=== PATIENT | female | born 1950 | race Caucasian/White ===

== ENCOUNTER 2020-05-18 00:35 | Outpatient (CLI) | payer MEDICARE, OTHER, SELFPAY ==
[2020-05-18 19:34] LABS: SARS-CoV-2 RNA PCR Negative
== END 2020-05-18 00:36 | disposition home or self-care (01) ==
LOC: ANHCOVIDDT 00:35
PROVIDERS: PCP Internal Medicine; Visit Provider Internal Medicine Gastroenterology
DX: Z01.812 Encounter for preprocedural laboratory examination (principal); Z20.828 Contact with and (suspected) exposure to other viral communicable diseases
CPT/HCPCS: 87635; C9803; U0003

== ENCOUNTER 2020-05-20 01:38 | Day surgery (SDC) | payer MEDICARE, OTHER, SELFPAY ==
[2020-05-07 14:31] VITALS: BMI 22.6
--- NOTE | 2020-05-18 14:41 | WPDANESEPPF ---
Anes - Initial Pre Proc Eval Procedure: Operation Date: 05/20/20 08:00 Proposed Procedures p Colonoscopy - Kevin Stephen MD Date/Time: 05/18/20 14:41 Surgeon: Kevin Stephen MD Pre Op Diagnosis: Poss Cologuard Patient Data Age: 69 Gender: F Height: 1.57 m Weight: 56 kg Allergies Allergy/AdvReac Type Severity Reaction Status Date / Time No Known Allergies Allergy Verified 05/20/20 06:58 Home Medications Medication Instructions Recorded Confirmed Type calcium carbonate 500 mg calcium 1,000 mg PO DAILY 07/31/19 05/07/20 History (1,250 mg) tablet bimatoprost 0.01 % eye drops 1 drop EACH EYE QPM #5 ml 08/07/19 05/07/20 Rx alendronate 70 mg tablet 70 mg PO WEEKLY #12 tablet 12/19/19 05/07/20 Rx simvastatin 20 mg tablet 20 mg PO DAILY #90 tablet 12/19/19 05/07/20 Rx peg 3350-electrolytes 236 240 ml PO Q10M #4000 ml 05/04/20 Rx gram-22.74 gram-6.74 gram-5.86 gram solution ascorbic acid (vitamin C) [Vitamin 250 mg PO DAILY 05/07/20 05/07/20 History C] timolol maleate 1 drop LEFTEYE DAILY 05/07/20 05/07/20 History Patient hx anesthesia problems: none Family hx anesthesia problems: none PMFSH Past Medical History Medical History (Updated 05/18/20 @ 14:41 by Jovani Gallego DO) History of hysteroscopy Low tension glaucoma of left eye, indeterminate stage Mixed hyperlipidemia Positive colorectal cancer screening using Cologuard test Surgical History Surgical History (Updated 01/08/20 @ 13:57 by Jeanette Vyas CMA) History of tubal ligation Social History Social History Smoking status: Never smoker Second hand tobacco smoke exposure: No Alcohol intake: current Anes - Eval Final PreProcedure Day of Procedure 05/18/20 14:41 Patient weight: normal Heart: regular rate and rhythm Lungs: clear to auscultation and normal air movement Airway: Mallampati scale class II Neurological: alert and oriented Last oral intake: >/= 8 hours ASA classification: II Emergent: no Anesthetic plan: proceed Anesthesia type and monitoring: general GIVS and standard monitoring Informed Consent: The patient's anesthetic plan and its attendant risks and benefits were discussed with the patient/family/POA. Questions were solicited and answers provided to the satisfaction of the patient/family/POA.
[2020-05-20 07:00] VITALS: BP 109/60; PULSE 60; RESP 20; TEMP 36.4; O2SAT 100; BMI 21.7
[2020-05-20] MEDS: LACTATED RINGERS 1,000 ML 150 ML IV CONT (07:04)
--- NOTE | 2020-05-20 07:54 | WPDHPUPDATE1 ---
History and Physical Update Update Date/Time: 05/20/20 07:54 History and Physical has been reviewed, including an updated exam of the patient. There are NO changes in the patient's condition. Risks, benefits, and alternatives have been discussed and questions answered. Patient agrees to proceed with procedure.
[2020-05-20 08:21] VITALS: BP 84/48; PULSE 70; RESP 16; O2SAT 97
[2020-05-20 08:31] VITALS: BP 103/61; PULSE 67; RESP 18; O2SAT 100
[2020-05-20 08:41] VITALS: BP 115/56; PULSE 58; RESP 18; O2SAT 99
== END 2020-05-20 09:07 | disposition home or self-care (01) ==
PROVIDERS: PCP Internal Medicine; Visit Provider Internal Medicine Gastroenterology
PROC: 0DJD8ZZ Inspection of Lower Intestinal Tract, Via Natural or Artificial Opening Endoscopic (ICD-10-PCS; CPT 45378; principal; 2020-05-20 08:00)
DX: D12.2 Benign neoplasm of ascending colon (principal); R19.5 Other fecal abnormalities; K57.30 Diverticulosis of large intestine without perforation or abscess without bleeding; K64.8 Other hemorrhoids; K62.89 Other specified diseases of anus and rectum; E78.2 Mixed hyperlipidemia
CPT/HCPCS: 45385; 88305; J2704; J7120

== ENCOUNTER 2020-10-12 12:38 | Outpatient (CLI) | payer MEDICARE, OTHER, SELFPAY ==
--- NOTE | ~2020-10-12 | MMUS_ITS ---
EXAMINATION: MM diagnostic milagros RT w janak, US breast RT complete HISTORY: Breast pain, particularly behind the nipple TECHNIQUE: ML, MLO and cc 3-D tomosynthesis images of the right breast were performed and synthetic 2 -D images were generated. CAD analysis was submitted and interpreted. High resolution breast ultrasou nd was performed. COMPARISON: 09/03/2019, 06/15/2018, 06/14/2017 bilateral digital screening mammogram examinations BREAST PARENCHYMAL COMPOSITION: The breasts are heterogeneously dense, which may obscure small masses . FINDINGS: MAMMOGRAPHIC FINDINGS: No suspicious mass or architectural distortion, malignant calcification, skin thickening or retractio n or significant new or developing density is detected. ULTRASOUND: No suspicious mass, suspicious shadowing or other significant sonographic abnormality is identified. IMPRESSION: 1. No mammographic evidence of malignancy 2. Routine annual mammographic screening is recommended. BI-RADS Category 1: Negative Reviewed, dictated and finalized at location A. RITY PROJECT MANAGER IMPRESSION: 1. No mammographic evidence of malignancy 2. Routine annual mammographic screening is recommended. BI-RADS Category 1: Negative
== END 2020-10-12 12:39 | disposition home or self-care (01) ==
LOC: ANHIMG 12:39
PROVIDERS: PCP Internal Medicine; Visit Provider Student in an Organized Health Care Education/Training Program
DX: N64.59 Other signs and symptoms in breast (principal)
CPT/HCPCS: 76641; 77061; 77065; G0279

== ENCOUNTER 2020-11-02 08:20 | Outpatient (CLI) | payer MEDICARE, OTHER, SELFPAY ==
--- NOTE | ~2020-11-02 | MM_ITS ---
EXAMINATION: MM screening [facility] BI w janak HISTORY: Screening mammogram TECHNIQUE: Craniocaudal and mediolateral oblique 3-D tomosynthesis images were obtained and synthetic 2-D images were generated. CAD analysis was submitted and interpreted. COMPARISON: 10/12/2020 diagnostic right mammogram and complete right breast ultrasound 09/03/2019, 06/15/2018, 06/14/2017 bilateral digital screening mammogram examinations BREAST PARENCHYMAL COMPOSITION: The breasts are heterogeneously dense, which may obscure small masses . FINDINGS: There are surgical clips in the left breast. There is no evidence of suspicious mass, nelli cification, or architectural distortion to suggest malignancy in either breast. There has been no mely picious interval change. IMPRESSION: 1. No mammographic evidence of malignancy. 2. Recommend routine screening mammography in one year. BI-RADS Category 1: Negative Reviewed, dictated and finalized at location A. NG AND FILLING MACHINE OPERATOR
== END 2020-11-02 08:21 | disposition home or self-care (01) ==
LOC: ANHIMG 08:24
PROVIDERS: PCP Internal Medicine; Visit Provider Student in an Organized Health Care Education/Training Program
DX: Z12.31 Encounter for screening mammogram for malignant neoplasm of breast (principal)
CPT/HCPCS: 77063; 77067

== ENCOUNTER 2021-10-14 14:49 | Emergency (ER) | payer MEDICARE, OTHER, SELFPAY ==
[2021-10-14 14:51] VITALS: BP 104/93; PULSE 74; RESP 18; TEMP 36.8; O2SAT 100
--- NOTE | 2021-10-14 16:04 | ED.GENADULT ---
HPI - General Adult General Chief complaint: Wound/Laceration <Александр Hoff PA-C - Last Filed: 10/14/21 16:12> Stated complaint: R THUMB LAC <Александр Hoff PA-C - Last Filed: 10/14/21 16:12> Time Seen by Provider: 10/14/21 14:55 <Александр Hoff PA-C - Last Filed: 10/14/21 16:12> Source: patient <NICO Quiroz Last Filed: 10/14/21 16:12> Mode of arrival: ambulatory <NICO Quiroz Last Filed: 10/14/21 16:12> Limitations: no limitations <NICO Quiroz Last Filed: 10/14/21 16:12> History of Present Illness HPI narrative: Patient is a 70-year-old female with chief complaint of laceration to her right thumb on a dish. She states the bleeding has now stopped. She states she is not UTD on Tdap. She denies any other injuries or symptoms. <Александр Hoff PA-C - Last Filed: 10/14/21 16:12> Related Data Home medications: Home Medications Medication Instructions Recorded Confirmed calcium carbonate 500 mg calcium 1,000 mg PO DAILY 07/31/19 03/02/21 (1,250 mg) tablet ascorbic acid (vitamin C) [Vitamin 250 mg PO DAILY 05/07/20 03/02/21 C] timolol maleate 1 drop LEFTEYE DAILY 05/07/20 03/02/21 <Александр Hoff PA-C - Last Filed: 10/14/21 16:12> Allergies/adverse reactions: Allergies Allergy/AdvReac Type Severity Reaction Status Date / Time No Known Allergies Allergy Verified 10/14/21 15:05 <NICO Quiroz Last Filed: 10/14/21 16:12> Review of Systems Review of Systems: CONSTITUTIONAL: Denies fever, chills, or sweats. EYES: Denies visual changes, redness, or discharge. ENT: Denies rhinorrhea, congestion, sore throat, or otalgia. CARDIOVASCULAR: Denies chest pain, palpitations, or edema. RESPIRATORY: Denies cough or dyspnea. GASTROINTESTINAL: Denies abdominal pain, nausea, vomiting, or diarrhea. GENITOURINARY: Denies dysuria or hematuria. SKIN: Reports laceration denies rash or itching. MUSCULOSKELETAL: Denies back pain, joint pain, or myalgia. NEUROLOGIC: Denies headache, numbness, dizziness, or weakness. PSYCHIATRIC: Denies anxiety or depression. <Александр Hoff PA-C - Last Filed: 10/14/21 16:12> PMFSH Past Medical History Medical History: Medical History History of one miscarriage Low tension glaucoma of left eye, indeterminate stage Mixed hyperlipidemia Positive colorectal cancer screening using Cologuard test <Александр Hoff PA-C - Last Filed: 10/14/21 16:12> Surgical History Surgical History: Surgical History History of hysteroscopy History of tubal ligation <Александр Hoff PA-C - Last Filed: 10/14/21 16:12> Family History Family History: Family History Mother Family history of dementia Sibling Family history of malignant neoplasm Family history of malignant neoplasm of bone Father Family history unknown Diabetes mellitus <Александр Hoff PA-C - Last Filed: 10/14/21 16:12> Social History Social History: Social History Smoking status: Never smoker Second hand tobacco smoke exposure: No Alcohol intake: current Drinks per week: 1 Alcohol use details: wine, occasionally Substance use: never Substance use type: does not use <Александр Hoff PA-C - Last Filed: 10/14/21 16:12> Exam Narrative: GENERAL: Well-appearing, well-nourished, and in no acute distress. HEAD: Normocephalic, atraumatic. EYES: PERRLA and EOMI. CHEST: Clear to auscultation. No respiratory distress. No wheezes rales or rhonchi EXTREMITIES: Normal range of motion. No edema. SKIN: 1cm well approximated laceration to the edge of thumb no nail involvement. No active bleeding. No foreign bodies noted. Warm, dry, no rash. NEURO: No focal deficits. Alert and oriented x3.
[2021-10-14] MEDS: TETANUS,DIPHTHERIA,AC PERTUSSIS ADULT (0.5 ML) BOOSTRIX IM (16:05)
== END 2021-10-14 16:24 | disposition home or self-care (01) ==
PROVIDERS: Emergency Provider Emergency Medicine; PCP Internal Medicine
DX: S61.011A Laceration without foreign body of right thumb without damage to nail, initial encounter (principal); Z23 Encounter for immunization; E78.2 Mixed hyperlipidemia; H40.1224 Low-tension glaucoma, left eye, indeterminate stage; W26.8XXA Contact with other sharp object(s), not elsewhere classified, initial encounter
CPT/HCPCS: 90471; 90715; 99282

== ENCOUNTER 2021-12-23 07:56 | Outpatient (CLI) | payer MEDICARE, OTHER, SELFPAY ==
--- NOTE | ~2021-12-23 | MM_ITS ---
EXAMINATION: MM screening [facility] BI w janak HISTORY: Screening mammogram TECHNIQUE: Craniocaudal and mediolateral oblique 3-D tomosynthesis images were obtained and synthetic 2-D images were generated. CAD analysis was submitted and interpreted. COMPARISON: 11/02/2020, 10/12/2020, 09/03/2019 BREAST PARENCHYMAL COMPOSITION: The breasts are heterogeneously dense, which may obscure small masses . FINDINGS: There is no suspicious mass, calcification, or architectural distortion to suggest malignan cy in either breast. There has been no suspicious interval change. IMPRESSION: 1. No mammographic evidence of malignancy. 2. Recommend routine screening mammography in one year. BI-RADS Category 1: Negative Reviewed, dictated and finalized at location A.
--- NOTE | ~2021-12-23 | DEXA_ITS ---
Bone Density Report Name: VIRIDIANA QUINONES Age: 71 Sex: Female Ethnicity: White Date of : 1950 Indication: osteopenia; prior fracture; postmenopausal Referring Provider: LEAH MICHAEL Study: Bone densitometry was performed. Exam Date: December 23, 2021 Accession number: [id number] Bone Density: Region BMD T-score Z-score Classification AP Spine (L1-L4) 1.033 -0.1 2.1 Normal Femoral Neck (Left) 0.597 -2.3 -0.4 Osteopenia Total Hip (Left) 0.786 -1.3 0.3 Osteopenia Total Hip Bilateral Avg 0.780 -1.4 0.3 Osteopenia Femoral Neck (Right) 0.643 -1.9 0.1 Osteopenia Total Hip (Right) 0.773 -1.4 0.2 Osteopenia World Health Organization criteria for BMD impression classify patients as: Normal (T-score at or above -1.0), Osteopenia (T-score between -1.0 and -2.5), or Osteoporosis (T-score at or below -2.5). 10-year Fracture Risk(1): Major Osteoporotic Fracture 21% Hip Fracture 5.0% Reported Risk Factors: [place] (), Neck BMD=0.597, BMI=23.8, previous fracture (1) FRAX(R) Version 3.08. Fracture probability calculated for an untreated patient. Fracture probability may be lower if the patient has received treatment. Previous Exams: Region Exam Age BMD T-score BMD Change BMD Change Date g/cm2 vs Baseline vs Previous AP Spine(L1-L4) 12/23/2021 71 1.033 -0.1 0.134(15.0%)* 0.064(6.6%)* 08/29/2018 67 0.968 -0.7 0.070(7.8%)* 0.070(7.8%)* 06/02/2016 65 0.898 -1.4 Total Hip(Left) 12/23/2021 71 0.786 -1.3 0.035(4.6%)* 0.019(2.4%) 08/29/2018 67 0.767 -1.4 0.016(2.1%) 0.016(2.1%) 06/02/2016 65 0.751 -1.6 Total Hip(Right) 12/23/2021 71 0.773 -1.4 0.047(6.4%)* -0.017(-2.1%) 08/29/2018 67 0.790 -1.2 0.063(8.7%)* 0.063(8.7%)* 06/02/2016 65 0.727 -1.8 *Denotes significance at 95% confidence level, LSC for AP Spine = 0.022 g/cm2, LSC for Total Hip = 0.027 g/cm2 Clinical Information Provided by Patient: Has had a low trauma fracture Has used the following medications: Vitamin D, Calcium Patient maximum height was 62 Menopause Age: 51 Does not regularly consume dairy products Onset of menses at age 13 Number of children 0 Impression: The patient has low bone mass, based on the Left Femoral Neck T-score. The patient has an estimated ten-year risk of hip fracture of 5% and an estimated ten-year risk of major fracture of 21%, based on the WHO FRAX algorithm. The patient has risk factors,
== END 2021-12-23 07:57 | disposition home or self-care (01) ==
LOC: ANHIMG 08:03
PROVIDERS: PCP Internal Medicine; Visit Provider Family Medicine
DX: Z12.31 Encounter for screening mammogram for malignant neoplasm of breast (principal); M81.0 Age-related osteoporosis without current pathological fracture; M85.852 Other specified disorders of bone density and structure, left thigh; M85.851 Other specified disorders of bone density and structure, right thigh
CPT/HCPCS: 77063; 77067; 77080

== ENCOUNTER → 2022-03-01 10:41 | Outpatient (CLI) | payer MEDICARE, OTHER, SELFPAY ==
--- NOTE | ~2022-03-01 | XR_ITS ---
XR hip RT min 2V 03/01/2022 11:06 Indication: Right hip pain Procedure: 2 views right hip Comparison: No prior studies for comparison. Findings: There is anatomic alignment. Mild osteoarthritis of the right hip. No fracture, subluxation or dislocation. Impression: 1: Mild osteoarthritis of the right hip. Reviewed, dictated and finalized at location B. Impression: 1: Mild osteoarthritis of the right hip.
--- NOTE | ~2022-03-01 | XR_ITS ---
XR hip LT min 2V DATE: 03/01/2022 11:06 INDICATION: Left hip pain TECHNIQUE: AP and lateral views COMPARISON: None FINDINGS: No fracture or dislocation, avascular necrosis or bone destruction. Left hip joint space i s well preserved. The left sacroiliac joint and pubic symphysis are intact. IMPRESSION: No significant abnormality Reviewed, dictated and finalized at location A. IMPRESSION: No significant abnormality
== END ==
PROVIDERS: PCP Family Medicine; Visit Provider Family Medicine
DX: M25.552 Pain in left hip (principal); M16.11 Unilateral primary osteoarthritis, right hip
CPT/HCPCS: 73502

== ENCOUNTER 2023-02-24 08:09 | Outpatient (CLI) | payer MEDICARE, OTHER, SELFPAY ==
--- NOTE | ~2023-02-24 | MM_ITS ---
EXAMINATION: MM screening milagros BI w janak HISTORY: Screening mammogram TECHNIQUE: Craniocaudal and mediolateral oblique 3-D tomosynthesis images were obtained and synthetic 2-D images were generated. CAD analysis was submitted and interpreted. COMPARISON: 12/23/2021, 11/02/2020 bilateral screening mammogram examinations 10/12/2020 diagnostic right mammogram and complete right breast ultrasound bilateral screening mammogram BREAST PARENCHYMAL COMPOSITION: The breasts are heterogeneously dense, which may obscure small masses . FINDINGS: 2 chronic radiopaque metallic small linear densities are noted in the mid to lower medial s ubcutaneous tissues of the left breast.. There is no evidence of suspicious mass, calcification, or a rchitectural distortion to suggest malignancy in either breast. There has been no suspicious interval change. IMPRESSION: 1. No mammographic evidence of malignancy. 2. Recommend routine screening mammography in one year. BI-RADS Category 1: Negative Reviewed, dictated and finalized at location A.
== END 2023-02-24 08:10 | disposition home or self-care (01) ==
LOC: ANHIMG 08:11
PROVIDERS: PCP Family Medicine; Visit Provider Family Medicine
DX: Z12.31 Encounter for screening mammogram for malignant neoplasm of breast (principal)
CPT/HCPCS: 77063; 77067

== ENCOUNTER 2023-04-11 08:40 | Outpatient (CLI) | payer MEDICARE, OTHER, SELFPAY ==
--- NOTE | 2023-04-20 19:37 | WPDSLEEPSTUD ---
Sleep Study Date of Study: 04/11/23 Ordering Provider: Nelson Cifuentes DO Interpreting Physician: Carey Valenzuela MD Sleep Study Type: Polysomnogram Height: 1.57 m Weight: 60.328 kg Body Mass Index: 24.3 Neck Circumference (inches): 13.5 [place] [address]: 4 Reason for Sleep Study Moderate to loud snoring, resource development director wanted the sleep study because her heart stopped beating at nightfor 3 seconds Sleep History Melisa Vieira is a 72-year-old female with history of dyslipidemia who presented for a sleep study ordered by her resource development director for evaluation after she reports a short pause noted on hear monitor. She never awakens from sleep short of breath. She never awakens at night with heartburn, belching or cough. She never snores. She rarely has trouble sleeping when she has a cold. She never suddenly wakes up gasping for breath during the night. She never has breathing problems at night. She never sweats excessively at night. She never notices her heart pounding or beating irregularly during the night. She never falls asleep during the day. She never falls asleep while driving. She never experiences loss of muscle tone with strong emotion. She never feels paralyzed on waking or falling asleep. She never experiences vivid dreams upon waking or falling asleep. She does not feel afraid of going to sleep. She does not have nightmares. She rarely recalls her dreams. She never has thoughts racing through her mind. She never feels sad or depressed. She rarely feels anxiety or worry about things. She does not notice parts of her body jerk. She never kicks during the night. She occasionally feels crawling or aching feelings in her legs. She rarely feels leg pain at night. She occasionally grinds her teeth during sleep but never has morning jaw pain. She occasionally feels bothered by pain during the day and rarely awakened by pain during the night. She occasionally wakes up feeling stiff, sore, and achy in the morning. Normal bedtime is around 10pm on the weekdays and 11pm on the weekends, falling asleep quickly. She typically gets about 8 hours of sleep per night. Her wake up time is around 7am on the weekdays and 8am on the weekends. She may wake up briefly at night, awake for only a few minutes then back to sleep. She watches television before falling asleep. Habits: Never tobacco smoker. Drinks about 2 caffeinated beverages per day. No alcohol or recreational substances. [facility] Past Medical History Medical History History of one miscarriage Low tension glaucoma of left eye, indeterminate stage Mixed hyperlipidemia Positive colorectal cancer screening using Cologuard test Surgical History Surgical History History of hysteroscopy History of tubal ligation Family History Family History Mother Family history of dementia Sibling Family history of malignant neoplasm Family history of malignant neoplasm of bone Father Family history unknown Diabetes mellitus Social History Social History Smoking status: Never smoker Second hand tobacco smoke exposure: No Alcohol intake: current Drinks per week: 1 Alcohol use details: wine, occasionally Substance use: never Substance use type: does not use Lack of Transportation: No Lack of Food: Never True Current Housing: I Have Housing Concerned About Future Housing: No Difficulty Paying Gas/Electric Bills: No Difficulty Paying for Meds: No Currently Unemployed: No Education: High School Diploma/GED Difficulty w/ Childcare or Family Care: No Medications Home Medications Medication Instructions Recorded Confirmed Type calcium carbonate 500 mg calcium 1,000 mg PO DAILY 07/31/19 04/17/23 History (1,250 mg) tablet (Calcium 500) bimatoprost
[2023-04-20 19:51] VITALS: BMI 24.3
== END 2023-04-12 07:23 | disposition home or self-care (01) ==
LOC: ANHCSM 08:41
PROVIDERS: PCP Family Medicine; Visit Provider Internal Medicine Cardiovascular Disease
DX: G47.10 Hypersomnia, unspecified (principal); R06.83 Snoring
CPT/HCPCS: 95810

== ENCOUNTER 2023-05-04 14:08 | Outpatient (CLI) | payer MEDICARE, OTHER, SELFPAY ==
[2023-05-04 15:19] LABS: Cholesterol 209 mg/dL (0-200); HDL Direct 58 mg/dL; Triglycerides 178 mg/dL (<150)
[2023-05-04 15:30] LABS: LDL Cholesterol Direct 102 mg/dL
== END 2023-05-04 14:09 | disposition home or self-care (01) ==
PROVIDERS: PCP Family Medicine; Visit Provider Internal Medicine Cardiovascular Disease
DX: E78.2 Mixed hyperlipidemia (principal)
CPT/HCPCS: 36415; 80061

== ENCOUNTER 2024-03-09 09:04 | Outpatient (CLI) | payer MEDICARE, OTHER, SELFPAY ==
--- NOTE | ~2024-03-09 | MM_ITS ---
EXAMINATION: MM screening [facility]ros BI w janak HISTORY: Screening TECHNIQUE: Craniocaudal and mediolateral oblique 3-D tomosynthesis images were obtained and synthetic 2-D images were generated. CAD analysis was submitted and interpreted. COMPARISON: Comparison to multiple prior studies sequentially, with oldest reviewed study dated 06/15. BREAST PARENCHYMAL COMPOSITION: Dense: The breasts are heterogeneously dense, which may obscure small masses FINDINGS: There is no evidence of suspicious mass, calcification, or architectural distortion to sugg est malignancy in either breast. There has been no suspicious interval change. IMPRESSION: 1. No mammographic evidence of malignancy. 2. Recommend routine screening mammography in one year. BI-RADS Category 1: Negative Reviewed, dictated and finalized at location B.
== END 2024-03-09 09:05 | disposition home or self-care (01) ==
LOC: ANHIMG 09:05
PROVIDERS: PCP Family Medicine; Visit Provider Family Medicine
DX: Z12.31 Encounter for screening mammogram for malignant neoplasm of breast (principal)
CPT/HCPCS: 77063; 77067

== ENCOUNTER 2024-04-30 07:32 | Outpatient (CLI) | payer MEDICARE, OTHER, SELFPAY ==
[2024-04-30 08:21] LABS: Alanine Aminotransferase 26 U/L (6-35); Albumin Level 4.5 g/dL (3.5-5.1); Alkaline Phosphatase 73 U/L (38-126); Anion Gap 10 mmol/L (4-12); Aspartate Amino Transferase 32 U/L (14-36); Bilirubin,Total 0.6 mg/dL (0.2-1.3); Blood Urea Nitrogen 17 mg/dL (7-17); Calcium 9.8 mg/dL (8.4-10.2); Carbon Dioxide 29 mmol/L (22-30); Chloride 102 mmol/L (98-107); Cholesterol 194 mg/dL (0-200); Estimated Glomerular Filt Rate > 60; Glucose 109 mg/dL (65-110); HDL Direct 54 mg/dL; Potassium 4.1 mmol/L (3.4-5.0); Sodium 141 mmol/L (137-145); Triglycerides 138 mg/dL (<150)
[2024-04-30 08:32] LABS: LDL Cholesterol Direct 97 mg/dL
== END 2024-04-30 07:33 | disposition home or self-care (01) ==
LOC: ANHLAB 07:34
PROVIDERS: PCP Family Medicine; Visit Provider Internal Medicine Cardiovascular Disease
DX: E78.2 Mixed hyperlipidemia (principal)
CPT/HCPCS: 36415; 80053; 80061

== ENCOUNTER 2024-05-08 09:50 | Outpatient (CLI) | payer MEDICARE, OTHER, SELFPAY ==
--- NOTE | ~2024-05-08 | DEXA_ITS ---
Bone Density Report Name: VIRIDIANA QUINONES Age: 73 Sex: Female Ethnicity: White Date of : 1950 Indication: osteopenia; Referring Provider: LEAH MICHAEL Study: Bone densitometry was performed. Exam Date: May 08, 2024 Accession number: [id number] Bone Density: Region BMD T-score Z-score Classification AP Spine(L1-L4) 1.013 -0.3 2.1 Normal Femoral Neck (Left) 0.620 -2.1 0.0 Osteopenia Total Hip (Left) 0.772 -1.4 0.4 Osteopenia Femoral Neck (Right) 0.635 -1.9 0.1 Osteopenia Total Hip (Right) 0.757 -1.5 0.2 Osteopenia Total Hip Mean 0.764 -1.5 0.3 Osteopenia World Health Organization criteria for BMD impression classify patients as: Normal (T-score at or above -1.0), Osteopenia (T-score between -1.0 and -2.5), or Osteoporosis (T-score at or below -2.5). 10-year Fracture Risk(1): Major Osteoporotic Fracture 13% Hip Fracture 3.4% Reported Risk Factors: [place] (), Neck BMD=0.620, BMI=24.5 (1) FRAX(R) Version 3.08. Fracture probability calculated for an untreated patient. Fracture probability may be lower if the patient has received treatment. Previous Exams: Region Exam Age BMD T-score BMD Change BMD Change Date g/cm2 vs Baseline vs Previous AP Spine (L1-L4) 05/08/2024 73 1.013 -0.3 0.115 (12.8%)* -0.020 (-1.9%) 12/23/2021 71 1.033 -0.1 0.134 (15.0%)* 0.064 (6.6%)* 08/29/2018 67 0.968 -0.7 0.070 (7.8%)* 0.070 (7.8%)* 06/02/2016 65 0.898 -1.4 Total Hip(Left) 05/08/2024 73 0.772 -1.4 0.021 (2.8%) -0.013 (-1.7%) 12/23/2021 71 0.786 -1.3 0.035 (4.6%)* 0.019 (2.4%) 08/29/2018 67 0.767 -1.4 0.016 (2.1%) 0.016 (2.1%) 06/02/2016 65 0.751 -1.6 Total Hip(Right) 05/08/2024 73 0.757 -1.5 0.030 (4.1%)* -0.017 (-2.2%) 12/23/2021 71 0.773 -1.4 0.047 (6.4%)* -0.017 (-2.1%) 08/29/2018 67 0.790 -1.2 0.063 (8.7%)* 0.063 (8.7%)* 06/02/2016 65 0.727 -1.8 *Denotes significance at 95% confidence level, LSC for AP Spine = 0.022 g/cm2, LSC for Total Hip = 0.027 g/cm2 Clinical Information Provided by Patient: Has used the following medications: Vitamin D, Calcium Patient maximum height was 62.0 Menopause Age: 51 Does not regularly consume dairy products Onset of menses at age 12 Number of children 0 Impression: The patient has low bone mass, based on the Left Femoral Neck T-score. The patient has an estimated ten-year risk of hip
== END 2024-05-08 09:51 | disposition home or self-care (01) ==
LOC: ANHIMG 09:52
PROVIDERS: PCP Family Medicine; Visit Provider Family Medicine
DX: M81.0 Age-related osteoporosis without current pathological fracture (principal); M85.852 Other specified disorders of bone density and structure, left thigh; M85.851 Other specified disorders of bone density and structure, right thigh
CPT/HCPCS: 77080

== ENCOUNTER 2024-08-28 12:22 | Emergency (ER) | payer MEDICARE, OTHER, SELFPAY ==
[2024-08-28 12:34] VITALS: BP 108/50; PULSE 50; RESP 16; TEMP 35.9; O2SAT 98
--- NOTE | 2024-08-28 13:17 | ED_ITS ---
HPI - URI/Sore Throat General Chief Complaint: Upper Respiratory Infection Stated Complaint: cold and cough Time Seen by Provider: 08/28/24 13:18 Source: patient Mode of arrival: ambulatory Limitations: no limitations History of Present Illness HPI Narrative: 73-year-old female presents with complaint of nasal congestion, sinus pressure, postnasal drainage, cough for approximately 10 days. Afebrile. Has taking [id number] Mucinex with no relief of symptoms. No chest pain or shortness of breath. All systems reviewed and negative except as noted above. Related Data Home Medications Medication Instructions Recorded Confirmed calcium carbonate (Calcium 500) 1,000 mg PO DAILY 07/31/19 05/07/24 dorzolamide 2 % eye drops 1 drp EACH EYE BID 03/01/22 05/07/24 brimonidine 0.2 % eye drops 1 drp EACH EYE Q8H 05/07/24 05/07/24 Allergies Allergy/AdvReac Type Severity Reaction Status Date / Time No Known Allergies Allergy Verified 08/28/24 13:09 Review of Systems Review of Systems: CONSTITUTIONAL: Denies fever, chills, or sweats. reports fatigue. EYES: Denies visual changes, redness, or discharge. ENT: reports rhinorrhea, congestion, sore throat. Denies otalgia. CARDIOVASCULAR: Denies chest pain, palpitations, or edema. RESPIRATORY: Reports cough. Denies dyspnea. GASTROINTESTINAL: Denies abdominal pain, nausea, vomiting, or diarrhea. GENITOURINARY: Denies dysuria or hematuria. SKIN: Denies rash or itching. MUSCULOSKELETAL: Denies back pain, joint pain, or myalgia. NEUROLOGIC: Denies headache, numbness, or weakness. PSYCHIATRIC: Denies anxiety or depression. All other systems reviewed are negative, except as documented in HPI. [facility] Past Medical History Medical History History of one miscarriage Low tension glaucoma of left eye, indeterminate stage Mixed hyperlipidemia Positive colorectal cancer screening using Cologuard test Surgical History Surgical History History of hysteroscopy History of tubal ligation Family History Family History Mother Family history of dementia Sibling Family history of malignant neoplasm Family history of malignant neoplasm of bone Father Family history unknown Diabetes mellitus Social History Social History (Updated 05/07/24 @ 09:04 by Alba Ding [facility]) Smoking packs per day: 0 Smoking cigarettes per day: 0.0 Smoking status: Never smoker Second hand tobacco smoke exposure: No Alcohol intake: current Drinks per week: 1 Alcohol use details: wine, occasionally Substance use: never Substance use type: does not use Do You Feel Safe in your Home?: Yes Lack of Transportation: No Lack of Food: Never True Current Housing: I Have Housing Concerned About Future Housing: No Difficulty Paying Gas/Electric Bills: No Difficulty Paying for Meds: No Currently Unemployed: No Education: High School Diploma/GED Difficulty w/ Childcare or Family Care: No Comments At time of signature, agree with nursing past medical, surgical, social and family history. There is no relevant family history pertinent to the presenting complaint. Exam Narrative: GENERAL: This is a well-nourished, well-developed patient, in no apparent distress. HEAD: normocephalic, atraumatic. EYES: PERRL. Sclera clear/white. Vision is grossly intact. EARS: External ears normal, auditory canals clear and without drainage, TMs normal without perforation. Hearing grossly intact. NOSE: External nose normal with No nasal drainage, erythema to bilateral nares, maxillary sinus tenderness on palpation. THROAT: Mucous membranes moist, Erythema postnasal drainage NECK: Neck supple, non-tender without lymphadenopathy, masses or thyromegaly. CARDIOVASCULAR: Regular rate and rhythm without murmurs, gallops, or rubs. RESPIRATORY: decreased to bilateral lung au otherwise clear. Breath sounds equal bilaterally. No wheezes, rales, or rhonchi. GASTROINTESTINAL: Abdomen soft, non-tender, nondistended. Bowel sounds are active. No hepato-splenomegaly, or palpable masses. No guarding SKIN: warm, Dry, intact with no suspicious lesions or rash, good texture and turgor. NEURO: awake, alert, and oriented to person, place and time. There were no obvious focal neurologic abnormalities. EXTREMITIES: No joint tenderness, effusion, or edema noted. Course Course Level of Care: Express Care Visit Vital Signs Vital signs: Vital Signs Temperature 35.9 C L 08/28/24 12:34 Pulse Rate 50 L 08/28/24 12:34 Respiratory Rate 16 08/28/24 12:34 Blood Pressure 108/50 L 08/28/24 12:34 Pulse Oximetry 98 08/28/24 12:34 Oxygen Delivery Room Air 08/28/24 12:34 Temperature 35.9 C L 08/28/24 12:34 Pulse Rate 50 L 08/28/24 12:34 Respiratory Rate 16 08/28/24 12:34 Blood Pressure 108/50 L 08/28/24 12:34 Pulse Oximetry 98 08/28/24 12:34 Oxygen Delivery Room Air 08/28/24 12:34 Reviewed MDM - URI/Sore Throat MDM Narrative Medical decision making narrative: will treat patient for bacterial sinusitis due to duration of symptoms and exam findings. Patient is aware of diagnosis, understands and agrees to treatment plan. Anticipatory guidance given. Patient agrees to follow-up as directed and is aware of reasons to seek care at the emergency department. Portions of this record may have been created with voice recognition software Differential Diagnosis Differential diagnosis: Likely upper respiratory infection, sinusitis, viral infection, influenza and pharyngitis Discharge Plan Discharge Clinical Impression: Acute bacterial sinusitis Patient Disposition: Home, Self-Care Condition: Stable Instructions: Antibiotic Form, Sinusitis (ED) Additional Instructions: take medications as prescribed. Take Tylenol every 6-8 hours as needed for pain and fever. Drink at least 64 oz of water a day. Place cool mist humidifier in bedroom where you sleep. Drink hot tea with honey to soothe throat and treat cough. See your primary care physician if symptoms are not improving. Prescriptions: New doxycycline hyclate 100 mg capsule 100 mg PO BID 7 Days Qty: 14 0RF benzonatate 200 mg capsule 200 mg PO TID PRN (Reason: cough) Qty: 20 0RF methylprednisolone [Medrol (Ruperto)] 4 mg tablets,dose pack See Rx Instructions PO .COMPLEX Qty: 21 0RF Rx Instructions: orally per package directions loratadine [Claritin] 10 mg tablet 10 mg PO DAILY Qty: 30 0RF No Action dorzolamide 2 % drops 1 drp EACH EYE BID Rx Instructions: One drop, twice per day in left eye. brimonidine 0.2 % drops 1 drp EACH EYE Q8H calcium carbonate [Calcium 500] 500 mg calcium (1,250 mg) tablet 1,000 mg PO DAILY Lumigan 0.01 % drops 1 drop EACH EYE QPM Qty: 5 0RF Imvexxy Maintenance Pack 10 mcg insert 10 mcg VAGINAL 2XW Qty: 8 0RF valacyclovir 1 gram tablet 2,000 mg PO ONCE PRN (Reason: cold sores) Qty: 20 0RF atorvastatin 10 mg tablet 10 mg PO DAILY Qty: 90 2RF Follow-up/Referrals: Mino Spaulding DO [Primary Care Provider] - Time of Disposition: 13:23
== END 2024-08-28 13:30 | disposition home or self-care (01) ==
PROVIDERS: Emergency Provider Nurse Practitioner Family; PCP Family Medicine
DX: J01.90 Acute sinusitis, unspecified (principal); E78.2 Mixed hyperlipidemia; H40.9 Unspecified glaucoma
CPT/HCPCS: 99213; G0463

== ENCOUNTER 2024-11-14 13:45 | Outpatient (CLI) | payer MEDICARE, OTHER, SELFPAY ==
--- NOTE | ~2024-11-14 | XR_ITS ---
EXAMINATION: XR lumbar spine min 4V DATE: 11/14/2024 14:07 INDICATION: Chronic back pain. Left-sided sciatica. TECHNIQUE: 6 views of lumbar spine including standing views were obtained. COMPARISON: None. FINDINGS: There is 6 degrees levocurvature of lumbar spine. There is 6 mm anterolisthesis of L4 on L5 . Vertebral body heights are normal. There is mildly decreased disc height at L2-L3 and L4-L5. There is multilevel facet joint osteoarthritis, severe in lower lumbar spine. IMPRESSION: 1. Mild lumbar spondylosis. Reviewed, dictated and finalized at location [employer] IMPRESSION: 1. Mild lumbar spondylosis.
== END 2024-11-14 13:46 | disposition home or self-care (01) ==
LOC: GOSHIMG 13:47
PROVIDERS: PCP Family Medicine; Visit Provider Family Medicine
DX: M47.896 Other spondylosis, lumbar region (principal)
CPT/HCPCS: 72110

== ENCOUNTER 2025-03-27 07:38 | Outpatient (CLI) | payer MEDICARE, OTHER, SELFPAY ==
--- NOTE | ~2025-03-27 | MM_ITS ---
EXAMINATION: MM screening milagros BI w janak HISTORY: Screening mammogram TECHNIQUE: Craniocaudal and mediolateral oblique 3-D tomosynthesis images were obtained and synthetic 2-D images were generated. CAD analysis was submitted and interpreted. COMPARISON: 03/09/2024, 02/24/2023, 12/23/2021 BREAST PARENCHYMAL COMPOSITION:Dense: The breasts are heterogeneously dense, which may obscure small masses. FINDINGS: No suspicious mass, calcification, or architectural distortion are identified in either jocelyn ast to suggest malignancy. There has been no suspicious interval change. IMPRESSION: No mammographic evidence of malignancy. Recommend routine screening mammography in one year. BI-RADS Category 1: Negative Reviewed, dictated and finalized at location .
== END 2025-03-27 07:39 | disposition home or self-care (01) ==
LOC: ANHIMG 07:41
PROVIDERS: PCP Family Medicine; Visit Provider Family Medicine
DX: Z12.31 Encounter for screening mammogram for malignant neoplasm of breast (principal)
CPT/HCPCS: 77063; 77067

== ENCOUNTER 2025-05-07 08:07 | Outpatient (CLI) | payer MEDICARE, OTHER, SELFPAY ==
[2025-05-07 13:23] LABS: Hematocrit 41.3 % (37.0-47.0); Hemoglobin 12.8 g/dL (12.0-15.0); Immature Granulocyte Percent A 0.5 % (0-0.5); Lymphocytes Absolute Auto 3.18 K/mm3 (0.9-3.2); Mean Corpuscular HGB Conc 31.0 g/dl (32-36); Mean Corpuscular Hemoglobin 29.4 pg (26-34); Mean Corpuscular Volume 94.7 fl (80-100); Nucleated Red Blood Cells Absolute Auto 0.000 K/mm3 (0.0-0.012); Nucleated Red Blood Cells Perc 0.0 % (0.0-0.2); Platelet Count Result 266 k/mm3 (150-375); Red Blood Count 4.36 M/mm3 (4.2-5.4); White Blood Count 7.8 K/mm3 (4.5-10.0)
[2025-05-07 13:30] LABS: Alanine Aminotransferase 38 U/L (6-35); Albumin Level 4.2 g/dL (3.5-5.1); Alkaline Phosphatase 79 U/L (38-126); Anion Gap 7 mmol/L (4-12); Aspartate Amino Transferase 50 U/L (14-36); Bilirubin,Total 0.5 mg/dL (0.2-1.3); Blood Urea Nitrogen 15 mg/dL (7-17); Calcium 9.7 mg/dL (8.4-10.2); Carbon Dioxide 28 mmol/L (22-30); Chloride 105 mmol/L (98-107); Cholesterol 201 mg/dL (0-200); Estimated Glomerular Filt Rate > 60; Glucose 84 mg/dL (65-110); HDL Direct 59 mg/dL; Potassium 4.9 mmol/L (3.4-5.0); Sodium 140 mmol/L (137-145); Total Protein 7.9 g/dL (6.3-8.2); Triglycerides 202 mg/dL (<150)
[2025-05-07 13:49] LABS: Free T4 Free Thyroxine 1.11 ng/dL (0.78-2.19)
[2025-05-07 14:07] LABS: Thyroid Stimulating Hormone 3.060 uIU/mL (0.465-4.680)
[2025-05-07 17:44] LABS: Hemoglobin A1C 6.3 % (<5.7)
== END 2025-05-07 08:08 | disposition home or self-care (01) ==
LOC: ANHGOSHLAB 08:09
PROVIDERS: PCP Family Medicine; Visit Provider Family Medicine
DX: E78.2 Mixed hyperlipidemia (principal); R53.83 Other fatigue; E55.9 Vitamin D deficiency, unspecified; R73.9 Hyperglycemia, unspecified
CPT/HCPCS: 36415; 80053; 80061; 82306; 83036; 84439; 84443; 85025

== ENCOUNTER 2025-05-22 01:00 | Day surgery (SDC) | payer MEDICARE, OTHER, SELFPAY ==
[2025-05-09 08:36] VITALS: BMI 23.8
[2025-05-22 07:44] VITALS: BP 108/68; PULSE 74; RESP 16; TEMP 36.3; O2SAT 98
[2025-05-22 07:45] VITALS: BMI 23.3
[2025-05-22] MEDS: LACTATED RINGERS 1,000 ML 150 ML IV CONT (07:54)
--- NOTE | 2025-05-22 08:11 | WPDANESEPPF ---
Anes - Initial Pre Proc Eval Procedure: Operation Date: 05/22/25 09:00 Proposed Procedures p Screening Colonoscopy - Kevin Stephen MD Date/Time: 05/22/25 08:11 Surgeon: Kevin Stephen MD Pre Op Diagnosis: screening,history of colon polyps, unspecified Patient Data Age: 74 Gender: F Height: 1.57 m Weight: 58 kg Last Vital Signs Temp 36.3 C L 05/22/25 07:44 Pulse 74 05/22/25 07:44 Resp 16 05/22/25 07:44 BP 108/68 05/22/25 07:44 Pulse Ox 98 05/22/25 07:44 O2 Del Method Room Air 05/22/25 07:44 Allergies Allergy/AdvReac Type Severity Reaction Status Date / Time No Known Allergies Allergy Verified 05/22/25 07:43 Home Medications ?Medication ?Instructions ?Recorded ?Confirmed ?Type calcium carbonate (Calcium 500) 1,000 mg PO DAILY 07/31/19 05/22/25 History bimatoprost 0.01 % eye drops 1 drop ophthalmic (eye) QPM #5 mL 08/07/19 05/22/25 Rx (Lumigan) atorvastatin 10 mg tablet 10 mg PO DAILY #90 tabs 03/26/24 05/22/25 Rx brimonidine 0.2 % eye drops 1 drp EACH EYE Q8H 05/07/24 05/22/25 History dorzolamide 22.3 mg-timolol 6.8 1 drp LEFT EYE BID 11/14/24 05/22/25 History mg/mL eye drops Patient hx anesthesia problems: none Family hx anesthesia problems: none Results Review: All pre-operative results and documents have been reviewed as part of the pre-operative evaluation. [facility] Past Medical History Medical History (Updated 05/16/25 @ 22:53 by EMIR Hightower) Cough Excessive gas History of one miscarriage Positive colorectal cancer screening using Cologuard test Low tension glaucoma of left eye, indeterminate stage Mixed hyperlipidemia Surgical History Surgical History History of hysteroscopy History of tubal ligation Family History Family History Mother Family history of dementia Sibling Family history of malignant neoplasm Family history of malignant neoplasm of bone Father Family history unknown Diabetes mellitus Social History Social History Smoking packs per day: 0 Smoking cigarettes per day: 0.0 Smoking status: Never smoker Second hand tobacco smoke exposure: No Alcohol intake: current Drinks per week: 1 Alcohol use details: occasionally Substance use: never Substance use type: does not use Do You Feel Safe in your Home?: Yes Lack of Transportation: No Lack of Food: Never True Current Housing: I Have Housing Concerned About Future Housing: No Difficulty Paying Gas/Electric Bills: No Difficulty Paying for Meds: No Currently Unemployed: No Education: High School Diploma/GED Difficulty w/ Childcare or Family Care: No Living arrangements: with family Spiritual care concerns: No Anes - Eval Final PreProcedure Day of Procedure 05/22/25 08:11 Patient weight: normal Heart: regular rate and rhythm Lungs: clear to auscultation and normal air movement Airway: Mallampati scale class II Neurological: alert and oriented Last oral intake: >/= 8 hours ASA classification: II Emergent: no Anesthetic plan: proceed Anesthesia type and monitoring: general GIVS and standard monitoring Results Review: All pre-operative results and documents have been reviewed as part of the pre-operative evaluation. Informed Consent: The patient's anesthetic plan and its attendant risks and benefits were discussed with the patient/family/POA. Questions were solicited and answers provided to the satisfaction of the patient/family/POA.
--- NOTE | 2025-05-22 08:56 | PM.HPGS ---
History of Present Illness History of Present Illness Consent: Risks, benefits, and alternatives have been discussed and questions answered. Patient agrees to proceed with procedure. Chief complaint: screening,history of colon polyps, unspecified Narrative: Melisa Vieira is a 74 year old female with colon polyp in 2019 Review of Systems Review of Systems: All systems reviewed & are unremarkable except as noted in HPI and below PMFSH Past Medical History Medical History (Updated 05/16/25 @ 22:53 by JACK Hightower-C) Cough Excessive gas History of one miscarriage Positive colorectal cancer screening using Cologuard test Low tension glaucoma of left eye, indeterminate stage Mixed hyperlipidemia Surgical History Surgical History History of hysteroscopy History of tubal ligation Family History Family History Mother Family history of dementia Sibling Family history of malignant neoplasm Family history of malignant neoplasm of bone Father Family history unknown Diabetes mellitus Social History Social History Smoking packs per day: 0 Smoking cigarettes per day: 0.0 Smoking status: Never smoker Second hand tobacco smoke exposure: No Alcohol intake: current Drinks per week: 1 Alcohol use details: occasionally Substance use: never Substance use type: does not use Do You Feel Safe in your Home?: Yes Lack of Transportation: No Lack of Food: Never True Current Housing: I Have Housing Concerned About Future Housing: No Difficulty Paying Gas/Electric Bills: No Difficulty Paying for Meds: No Currently Unemployed: No Education: High School Diploma/GED Difficulty w/ Childcare or Family Care: No Living arrangements: with family Spiritual care concerns: No Meds Home Medications and Allergies Home Medications ?Medication ?Instructions ?Recorded ?Confirmed ?Type calcium carbonate (Calcium 500) 1,000 mg PO DAILY 07/31/19 05/22/25 History bimatoprost 0.01 % eye drops 1 drop ophthalmic (eye) QPM #5 mL 08/07/19 05/22/25 Rx (Lumigan) atorvastatin 10 mg tablet 10 mg PO DAILY #90 tabs 03/26/24 05/22/25 Rx brimonidine 0.2 % eye drops 1 drp EACH EYE Q8H 05/07/24 05/22/25 History dorzolamide 22.3 mg-timolol 6.8 1 drp LEFT EYE BID 11/14/24 05/22/25 History mg/mL eye drops Allergies Allergy/AdvReac Type Severity Reaction Status Date / Time No Known Allergies Allergy Verified 05/22/25 07:43 Vital Signs Vital Signs - 24 hr 05/22/25 07:44 Temperature 97.3 F L Pulse Rate 74 Respiratory Rate 16 Blood Pressure 108/68 Pulse Oximetry 98 Oxygen Delivery Room Air Exam Const: General: comfortable and no acute distress HENMT: Face/Nose/Sinus: Normal nares present Eyes: General: appearance normal, both eyes and all related structures Neck: Neck: no JVD Resp: Auscultation: clear to auscultation bilaterally Cardio: Rate: regular rate Rhythm: regular rhythm GI: Inspection: non-distended GI Palp: Yes Soft to palpation Skin: General skin exam: normal color Neuro: Speech: normal speech Extrem: General: normal to inspection Psych: Mental Status: mental status grossly normal Assessment and Plan Assessment and plan (1) Colon polyps: Qualifiers: Colon polyp type: adenomatous Colon location: unspecified part of colon Qualified Code(s): D12.6 - Benign neoplasm of colon, unspecified Code(s): K63.5 - Polyp of colon Status: Acute Assessment and Plan: colonoscopy
--- NOTE | 2025-05-22 09:18 | S_PTH ---
PATIENT: Melisa Vieira LOC: [facility]#:[id number] AGE/SX: 74/F ROOM: RE05/22/[address]: Kevin Stephen MD : 1950 BED: DIS: 05/22/2025 SPEC #: [id number] RECD: 05/22/25 10:19 STATUS: LUKE REDomingo #: [id number] BRITTNEE: 05/22/25 09:[address]: Kevin Stephen DEPT: [facility] Surgical RECD BY: Teresa Soliz ENTERED: 05/22/25 10:19 SP TYPE: Surgical OTHR DR: Jen Cohen DO Tissues: A - Colon Polypectomy Procedures: Hematoxylin and Eosin Stain Gross and Microscopic Level 4
[2025-05-22 09:20] VITALS: BP 91/52; PULSE 73; RESP 32; O2SAT 94
[2025-05-22 09:30] VITALS: BP 95/56; PULSE 65; RESP 17; O2SAT 94
[2025-05-22 09:40] VITALS: BP 119/64; PULSE 68; RESP 17; O2SAT 96
== END 2025-05-22 09:55 | disposition home or self-care (01) ==
PROVIDERS: PCP Family Medicine; Referring Provider Family Medicine; Visit Provider Internal Medicine Gastroenterology
PROC: 0DJD8ZZ Inspection of Lower Intestinal Tract, Via Natural or Artificial Opening Endoscopic (ICD-10-PCS; CPT 45378; principal; 2025-05-22 09:00)
DX: Z12.11 Encounter for screening for malignant neoplasm of colon (principal); D12.2 Benign neoplasm of ascending colon; K57.30 Diverticulosis of large intestine without perforation or abscess without bleeding; K64.8 Other hemorrhoids
CPT/HCPCS: 45385; 88305; J2704; J7120

== ENCOUNTER 2025-08-07 08:03 | Outpatient (CLI) | payer MEDICARE, OTHER, SELFPAY ==
[2025-08-07 13:11] LABS: Alanine Aminotransferase 34 U/L (6-35); Albumin Level 4.3 g/dL (3.5-5.1); Alkaline Phosphatase 68 U/L (38-126); Anion Gap 7 mmol/L (4-12); Aspartate Amino Transferase 48 U/L (14-36); Bilirubin,Total 0.6 mg/dL (0.2-1.3); Blood Urea Nitrogen 19 mg/dL (7-17); Calcium 9.2 mg/dL (8.4-10.2); Carbon Dioxide 27 mmol/L (22-30); Chloride 105 mmol/L (98-107); Cholesterol 176 mg/dL (0-200); Estimated Glomerular Filt Rate > 60; Glucose 85 mg/dL (65-110); HDL Direct 59 mg/dL; Potassium 4.2 mmol/L (3.4-5.0); Sodium 139 mmol/L (137-145); Total Protein 7.7 g/dL (6.3-8.2); Triglycerides 84 mg/dL (<150)
[2025-08-07 14:29] LABS: Hemoglobin A1C 6.1 % (<5.7)
== END 2025-08-07 08:04 | disposition home or self-care (01) ==
LOC: ANHGOSHLAB 08:05
PROVIDERS: PCP Family Medicine; Visit Provider Clinical Nurse Specialist
DX: E78.2 Mixed hyperlipidemia (principal); R74.01 Elevation of levels of liver transaminase levels; R73.01 Impaired fasting glucose
CPT/HCPCS: 36415; 80053; 80061; 83036